=== PATIENT | male | born 1965 | race African-American/Black ===

== ENCOUNTER 2017-10-13 10:04 | Emergency (ER) | payer OTHER ==
[~2017-10-13] VITALS: Ht 193 cm; Wt 115.9 kg
[~2017-10-13 10:04] MED LIST: NOVOLOG MI100 UNIT/4 SC; NOVOLOG MI100 UNIT/M SC; PRAVACHOL20 MG PO
[2017-10-13 11:32] VITALS: BP 145/91
== END 2017-10-13 12:09 | disposition home or self-care (01) ==
LOC: EME → EDBD 10:04 → EME 12:09
DX: S91.201A Unspecified open wound of right great toe with damage to nail, initial encounter (principal); W22.8XXA Striking against or struck by other objects, initial encounter; E11.9 Type 2 diabetes mellitus without complications; I10 Essential (primary) hypertension
CPT/HCPCS: 73630; 99281; 99284